=== PATIENT | female | born 1960 | race American Indian/Alaskan Native ===

== ENCOUNTER 2021-08-25 17:42 | Emergency (ER) | payer MEDICARE ==
[2021-08-25 18:46] VITALS: BP 112/73
== END 2021-08-27 12:49 | disposition left against medical advice (07) ==
LOC: ED 17:42
DX: R19.4 Change in bowel habit (principal); Z53.21 Procedure and treatment not carried out due to patient leaving prior to being seen by health care provider

== ENCOUNTER 2021-09-06 18:28 | Emergency (ER) | payer MEDICARE ==
[2021-09-06 18:42] VITALS: BP 101/75
== END 2021-09-07 00:10 | disposition left against medical advice (07) ==
LOC: ED 18:28
DX: R10.9 Unspecified abdominal pain (principal); Z53.21 Procedure and treatment not carried out due to patient leaving prior to being seen by health care provider